=== PATIENT | male | born 2000 | race Caucasian/White ===

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

== ENCOUNTER 2023-08-26 14:54 | Emergency (ER) | payer BC, OTHER ==
[2023-08-26 15:14] VITALS: BP 143/69; PULSE 102; RESP 17; TEMP 97.7; BMI 34.7
[2023-08-26] MEDS ORDERED: ACETAMINOPHEN INJECTION 100 ML IVPB ONE (16:31)
[2023-08-26] MEDS: ACETAMINOPHEN 1000 MG/100 ML BAG IVPB ONE (16:55)
[2023-08-26] MEDS ORDERED: KETOROLAC TROMETHAMINE 30 MG/1 ML VIAL ONE (17:04)
[2023-08-26 17:08] LABS: BASO % 0.4 % (0-2.0); EOS % 0.5 % (0-4.5); HEMATOCRIT 34.9 % (35.4-49); HEMOGLOBIN 11.7 GM/dL (11.7-16.9); MCH 29.3 pg (25.7-33.7); MCHC 33.7 g/dl (32.0-35.9); MEAN PLT VOLUME 9.5 fl (7.5-11.1); MONO % 5.5 % (3.8-10.2); NEUT % 83.6 % (42.8-82.8); PLATELET COUNT 197 10^3/uL (134-434); RBC 4.01 M/mm3 (4.00-5.60); RDW 12.5 % (11.9-15.9)
[2023-08-26 17:24] LABS: POTASSIUM 3.8 mmol/L (3.5-5.1)
[2023-08-26 17:27] LABS: CALCIUM 8.3 mg/dL (8.5-10.1)
[2023-08-26 17:30] LABS: CREATININE 1.1 mg/dL (0.55-1.3); PHOSPHOROUS 2.9 mg/dL (2.5-4.9)
[2023-08-26 17:31] LABS: TOT PROT 6.4 g/dl (6.4-8.2)
[2023-08-26 17:35] LABS: ALBUMIN 2.4 g/dl (3.4-5.0)
[2023-08-26] MEDS: KETOROLAC TROMETHAMINE 30 MG/1 ML VIAL IM ONE (17:51)
== END 2023-08-26 19:53 | disposition home or self-care (01) ==
LOC: JER 14:54
PROC: 3E033NZ Introduction of Analgesics, Hypnotics, Sedatives into Peripheral Vein, Percutaneous Approach (ICD-10-PCS; principal; 2023-08-26)
PROC: 3E0233Z Introduction of Anti-inflammatory into Muscle, Percutaneous Approach (ICD-10-PCS; 2023-08-26)
DX: R09.1 Pleurisy (principal); E11.65 Type 2 diabetes mellitus with hyperglycemia; Z20.822 Contact with and (suspected) exposure to COVID-19
CPT/HCPCS: 0241U-QW; 36415; 71046-TC-FY; 80053; 83735; 84100; 84484; 85025; 93005; 93010; 99285-25; J0131